=== PATIENT | male | born 1950 | race Caucasian/White ===

== ENCOUNTER 2018-08-12 09:58 | Inpatient (IN) | payer MEDICARE ==
[~2018-08-12] VITALS: Ht 188 cm; Wt 91.4 kg
--- NOTE | 2018-08-12 10:24 | NUR ---
PATIENT PRESENTS TO ED TODAY FOR CHEST TIGHTNESS STARTING 2 WEEKS AGO, DENIES CARDIAC/PULM HX. [employer]PORATE AFFAIRS MANAGER ON PATIENT. AWAITING MD ORDERS, CALL LIGHT WITHIN REACH, FATEMEH.
[2018-08-12] MEDS ORDERED: CHLO25TA PO (10:35)
[2018-08-12] MEDS ORDERED: ZOLP-413 PO (10:37)
[2018-08-12] MEDS ORDERED: LANS30CA PO (10:38)
[2018-08-12] MEDS ORDERED: ASPI-515 PO (10:38)
[2018-08-12] MEDS ORDERED: LISI40TA PO (10:39)
[2018-08-12] MEDS ORDERED: ATOR-2 PO (10:39)
[2018-08-12] MEDS ORDERED: ASPIRIN 81 MG TABLET CHEW ONE (10:41)
[2018-08-12] MEDS ORDERED: SODIUM CHLORIDE FLUSH 10ML SYR IVF ONE (11:00)
[2018-08-12] MEDS ORDERED: ASPIRIN 81 MG TABLET CHEW PO ONE (11:00)
[2018-08-12 11:43] LABS: BASOPHILS # (AUTO) 0.04 x10^3/uL (0-0.1); BASOPHILS % (AUTO) 1 % (0-1); EOSINOPHILS # (AUTO) 0.03 x10^3/uL (0-0.4); EOSINOPHILS % (AUTO) 0 % (1-7); LYMPHOCYTES # (AUTO) 1.24 x10^3/uL (1-3.4); LYMPHOCYTES % (AUTO) 18 % (22-44); MD NO; MEAN CORPUSCULAR HEMOGLOBIN 32.6 pg (27.5-34.5); MEAN CORPUSCULAR VOLUME 95.7 fL (81-97); MEAN PLATELET VOLUME 6.9 fL (7.4-10.4); MONOCYTES # (AUTO) 0.69 x10^3/uL (0.2-0.8); MONOCYTES % (AUTO) 10 % (2-9); NEUTROPHILS # (AUTO) 5.09 x10^3/uL (1.8-6.8); NEUTROPHILS % (AUTO) 72 % (42-75); PLATELET COUNT 340 x10^3/uL (130-400); RED BLOOD COUNT 4.87 x10^6/uL (4.38-5.82); RED CELL DISTRIBUTION WIDTH 12.9 % (9.4-14.8)
[2018-08-12 11:54] LABS: D-DIMER 0.2 ug/mlFEU (0.00-0.52); INTERNATIONAL NORMALIZED RATIO 0.99 (0.93-1.1); PROTHROMBIN TIME 10.4 Seconds (9.6-11.5)
[2018-08-12 11:55] LABS: ALANINE AMINOTRANSFERASE 32 U/L (12-78); ALBUMIN 4.2 g/dL (3.4-5.0); ANION GAP 7 mmol/L (5-15); CALCIUM 9.3 mg/dL (8.5-10.1); CHLORIDE 102 mmol/L (98-107); CREATININE 0.95 mg/dL (0.7-1.3)
[2018-08-12 12:00] LABS: ALKALINE PHOSPHATASE 44 U/L (45-117); BILIRUBIN,TOTAL 0.7 mg/dL (0.2-1.0); TOTAL PROTEIN 7.6 g/dL (6.4-8.2); TROPONIN I < 0.015 ng/mL (0.000-0.045)
[2018-08-12 12:05] LABS: THYROID STIMULATING HORMONE 0.983 mIU/L (0.358-3.740)
--- NOTE | 2018-08-12 12:19 | NUR ---
VS UPDATED IN CHART, PATIENT TO BATHROOM WITH STEADY GAIT, BACK TO BED, NADN. RESULTS BACK, CHART UP FOR RECHECK. AWAITING FURTHER ORDERS.
--- NOTE | 2018-08-12 12:50 | NUR ---
REPORT TO JUANPABLO ECHAVARRIA.
--- NOTE | 2018-08-12 13:01 | NUR ---
ERP TO SEE PATIENT PRIOR TO TRANSPORT PER REQUEST.
--- NOTE | 2018-08-12 13:15 | NUR ---
[facility] AT BEDSIDE.
--- NOTE | 2018-08-12 13:29 | NUR ---
PATIENT AGREES TO BE ADMITTED. PATIENT TRANSFERRED/ADMITTED TO HOSPITAL BED UPSTAIRS.
[2018-08-12 14:26] VITALS: BP 144/91
[2018-08-12] MEDS ORDERED: LORazepam 1MG TABLET PO PRN (15:00)
[2018-08-12] MEDS ORDERED: ACETAMINOPHEN 325 MG TABLET PO PRN (15:00)
[2018-08-12 15:30] LABS: TROPONIN I < 0.015 ng/mL (0.000-0.045)
[2018-08-12] MEDS ORDERED: METOPROLOL TARTRATE 25 MG TABLET ONE (15:44)
[2018-08-12] MEDS: METOPROLOL TARTRATE 25 MG TABLET PO SCH (15:46)
[2018-08-12] MEDS ORDERED: morphine SULFATE 10 MG/ML, 1ML IVPush PRN (17:00)
[2018-08-12] MEDS ORDERED: NITROGLYCERIN 0.4 MG BOTTLE (25 TABS) SL ONE (17:00)
[2018-08-12] MEDS: NITROGLYCERIN SINGLE TAB 0.4 MG SL PRN ×2 (17:16→17:25)
[2018-08-12 17:18] VITALS: BP 111/75
[2018-08-12 17:23] VITALS: BP 115/76
[2018-08-12 17:28] VITALS: BP 110/72
[2018-08-12] MEDS ORDERED: META800T PO (19:01)
[2018-08-12] MEDS ORDERED: SILD100T PO (19:01)
[2018-08-12] MEDS ORDERED: AZEL6DRO2 EACHEYE (19:01)
[2018-08-12 19:36] VITALS: BP 119/69
[2018-08-12] MEDS ORDERED: ZOLPIDEM 5MG TABLET PO PRN ×2 (20:00→22:00)
[2018-08-12] MEDS ORDERED: ATORVASTATIN 80 MG TABLET PO SCH (21:00)
[2018-08-12 21:28] LABS: TROPONIN I < 0.015 ng/mL (0.000-0.045)
[2018-08-13 00:57] VITALS: BP 124/82
[2018-08-13 05:29] LABS: CHOL/HDL RATIO 2.4; LDL/HDL RATIO 1.1 (0.5-3.0)
[2018-08-13] MEDS ORDERED: PANTOPROZOLE 40MG TABLET PO SCH (06:00)
[2018-08-13] MEDS ORDERED: THIAMINE 100MG TABLET PO SCH (09:00)
[2018-08-13] MEDS ORDERED: MULTIVITAMINS/MINERALS TABLET PO SCH (09:00)
[2018-08-13] MEDS ORDERED: LISINOPRIL 40 MG TABLET PO SCH (09:00)
[2018-08-13] MEDS ORDERED: ASPIRIN 81 MG TABLET EC PO SCH (09:00)
[2018-08-13] MEDS ORDERED: TEMPLATE NON-FORMULARY MED. (Lansoprazole** 30 MG) PO SCH (09:00)
[2018-08-13 09:27] VITALS: BP 127/82
[2018-08-13] MEDS: METOPROLOL TARTRATE 25 MG TABLET PO SCH (10:24)
[2018-08-13 10:56] LABS: ANION GAP 6 mmol/L (5-15); CALCIUM 9.1 mg/dL (8.5-10.1); CHLORIDE 104 mmol/L (98-107); CREATININE 1.01 mg/dL (0.7-1.3)
[2018-08-13] MEDS ORDERED: THIA100T67 PO (14:58)
[2018-08-13] MEDS ORDERED: METO25TA35 PO (14:58)
[2018-08-13] MEDS ORDERED: FOLI-17 PO (14:58)
== END 2018-08-13 16:12 | disposition home or self-care (01) | DRG 392 ==
LOC: ED 11:39 → EDIP 12:25 → 5SO 13:21
PROVIDERS: ADMIT Internal Medicine; ATTEND Internal Medicine
DX: K21.9 Gastro-esophageal reflux disease without esophagitis (principal); R07.2 Precordial pain; E78.5 Hyperlipidemia, unspecified; I10 Essential (primary) hypertension; Z82.49 Family history of ischemic heart disease and other diseases of the circulatory system; Z83.3 Family history of diabetes mellitus
CPT/HCPCS: 36415; 71045; 80048; 80053; 80061; 83735; 83880; 84100; 84443; 84484; 85025; 85379; 85610; 93005; 93017; 93306; G0378